=== PATIENT | male | born 1960 | race Caucasian/White ===

== ENCOUNTER 2017-08-09 07:45 | Inpatient (IN) | payer MEDICARE, MEDICAID ==
[2017-08-09] MEDS ORDERED: SODIUM CHLORIDE 0.9% 1,000 ML IV ONE (08:02)
[2017-08-09] MEDS ORDERED: LORazepam 2MG/ML-1ML VIAL IV ONE (08:15)
[2017-08-09] MEDS ORDERED: ACETAMINOPHEN 500 MG TAB PO ONE (08:30)
[2017-08-09 08:41] LABS: Basophils # (auto) 0 uL; Basophils % (auto) 0.1 % (0.0-2.0); Eosinophils # (auto) 0 uL; Eosinophils % (auto) 0.2 % (0.0-7.0); Hematocrit 45.2 % (41.0-53.0); Hemoglobin 15.1 g/dL (13.5-17.5); Lymphocytes # (auto) 0.2 uL; Lymphocytes % (auto) 2.2 % (10.0-50.0); Mean Corpuscular Hemoglobin 32.1 pg (28.0-32.0); Mean Corpuscular Hgb Conc. 33.5 g/dL (32.0-36.0); Mean Corpuscular Volume 95.8 fL (80.0-100.0); Monocytes # (auto) 0.4 uL; Monocytes % (auto) 3.8 % (0.0-12.0); Neutrophils # (auto) 9.3 uL; Neutrophils % (auto) 93.7 % (37.0-80.0); Platelet Count (auto) 147 10^3/uL (140-450); Red Blood Cells 4.72 10^6/uL (4.5-5.90); Red Cell Distribution Width 12.9 % (11.8-14.3)
[2017-08-09 09:13] LABS: Albumin 3.8 g/dL (3.4-5.0); BUN/Creatinine Ratio 16.5; Bilirubin, Total 0.4 mg/dL (0.2-1.0); Calcium 8.3 mg/dL (8.5-10.1); Magnesium 2.4 mg/dL (1.6-2.6); Potassium 4.4 mmol/L (3.5-5.1); Total Protein 7.7 g/dL (6.4-8.2)
[2017-08-09] MEDS ORDERED: cefTRIAXone 1GM/10ml IVPUSH 10 ML IV ONE (12:15)
[2017-08-09] MEDS ORDERED: SODIUM CHLORIDE 0.9% 1,000 ML IV SCH (12:22)
[2017-08-09] MEDS ORDERED: HYDROcodone-ACET 5/325MG TAB PO PRN (12:30)
[2017-08-09] MEDS ORDERED: LORazepam 2MG/ML-1ML VIAL IV PRN (12:30)
[2017-08-09] MEDS ORDERED: OSELTAMIVIR 75 MG CAP PO ONE (12:30)
[2017-08-09] MEDS ORDERED: PROMETHAZINE HCL 25 MG/ML 1ML IV PRN (12:30)
[2017-08-09] MEDS ORDERED: LEVETIRACETAM 500 MG TAB PO ONE (12:30)
[2017-08-09] MEDS ORDERED: LORazepam 0.5 MG TAB PO PRN (12:30)
[2017-08-09] MEDS ORDERED: MORPHINE SULFATE 4 MG/ML SYR/VIAL IV PRN ×2 (12:30)
[2017-08-09] MEDS ORDERED: TEMAZEPAM 15 MG CAP PO PRN (12:30)
[2017-08-09] MEDS ORDERED: ALBUTEROL SULF 2.5 MG/0.5ML(0.5%) NEB SOLN NEB PRN (12:30)
[2017-08-09] MEDS ORDERED: LACTULOSE 20Gm/30ML SOLN PO PRN (12:30)
[2017-08-09] MEDS ORDERED: DEXTROSE (50%) 50ML SYRG IV PRN (12:30)
[2017-08-09] MEDS ORDERED: ACETAMINOPHEN 500 MG TAB PO PRN (12:30)
[2017-08-09] MEDS ORDERED: NITROGLYCERIN 0.4 MG SL TAB SL PRN (12:30)
[2017-08-09] MEDS: ENOXAPARIN SOD 40 MG/0.4 ML SYRINGE SC SCH (13:00)
[2017-08-09 13:06] LABS: INR 0.98 (0.9-1.15); Partial Thromboplastin Time 27.8 sec (22.64-33.71); Prothrombin Time 10.7 sec (9.37-12.3)
[2017-08-09] MEDS: PHENYTOIN SODIUM 100 MG CAP PO SCH ×2 (13:51→22:03)
[2017-08-09] MEDS: PHENobarbital 32.4 MG TAB PO SCH ×2 (13:51→22:03)
[2017-08-09] MEDS: AZITHROMYCIN 500MG/ 250ML 250 ML IV SCH (13:51)
[2017-08-09 17:00] VITALS: BP 141/71
[2017-08-09] MEDS: InsuLIN REG 1unit/0.01ml Soln (100units/ml) SC SCH ×2 (17:00→22:00)
[2017-08-09] MEDS ORDERED: THIO50TA PO (17:06)
[2017-08-09] MEDS ORDERED: PHE100C PO (17:06)
[2017-08-09] MEDS ORDERED: FESO4TAB PO (17:06)
[2017-08-09] MEDS ORDERED: PHEN32.49 PO (17:06)
[2017-08-09] MEDS ORDERED: LITH300C3 PO (17:06)
[2017-08-09] MEDS: ACCU-CHEK COMFORT CURVE STRIP VI SCH ×2 (17:13→22:03)
[2017-08-09 17:31] VITALS: BP 141/71
[2017-08-09 20:00] VITALS: BP 140/77
[2017-08-09 21:34] VITALS: BP 140/97
[2017-08-09] MEDS ORDERED: LEVETIRACETAM 500 MG TAB PO SCH (22:00)
[2017-08-09] MEDS ORDERED: OSELTAMIVIR 75 MG CAP PO SCH (22:00)
[2017-08-10 05:24] VITALS: BP 117/70
[2017-08-10] MEDS: PHENYTOIN SODIUM 100 MG CAP PO SCH ×2 (05:58→15:00)
[2017-08-10] MEDS: PHENobarbital 32.4 MG TAB PO SCH ×2 (05:58→15:00)
[2017-08-10] MEDS: ACCU-CHEK COMFORT CURVE STRIP VI SCH ×2 (06:17→11:30)
[2017-08-10] MEDS: InsuLIN REG 1unit/0.01ml Soln (100units/ml) SC SCH ×2 (06:17→11:30)
[2017-08-10 07:54] LABS: Cholesterol 76 mg/dL (< 200); HDL Cholesterol 45 mg/dL (40-59); LDL Cholesterol 26 mg/dL (< 100); Triglycerides 120 mg/dL (< 150)
[2017-08-10 09:00] VITALS: BP 136/79
[2017-08-10] MEDS ORDERED: cefTRIAXone 1GM/10ml IVPUSH 10 ML IV SCH (09:00)
[2017-08-10] MEDS: ENOXAPARIN SOD 40 MG/0.4 ML SYRINGE SC SCH (09:34)
[2017-08-10] MEDS: AZITHROMYCIN 500MG/ 250ML 250 ML IV SCH (09:35)
[2017-08-10 11:32] LABS: Urine Bacteria NONE SEEN /hpf (None Seen); Urine Blood Negative /uL (Negative); Urine Specific Gravity 1.007 (1.001-1.035); Urine WBC 1 /hpf (0 - 3)
[2017-08-10 11:44] LABS: Alcohol, Urine < 3.0 mg/dL (0-5); Amphetamine Screen, Urine NEGATIVE (NEGATIVE); Barbiturate Scree,Urine POSITIVE (NEGATIVE); Benzodiazephine Screen, Urine NEGATIVE (NEGATIVE); Cannabinoid Screen, Urine NEGATIVE (NEGATIVE); Cocaine Screen, Urine NEGATIVE (NEGATIVE); Opiate Scree,Urine NEGATIVE (NEGATIVE); Phencyclidine Screen, Urine NEGATIVE (NEGATIVE)
[2017-08-10 13:00] VITALS: BP_SYST 127; BP_SYST 137; BP_DIAS 58; BP_DIAS 78
[2017-08-10 16:33] VITALS: BP 141/85
== END 2017-08-10 16:42 | disposition home or self-care (01) | DRG 872 ==
LOC: ER 07:45 → TELE 07:46 → TELE-WESTW 15:48
PROVIDERS: ADMIT Internal Medicine; ATTEND Internal Medicine
DX: A41.9 Sepsis, unspecified organism (principal); J81.1 Chronic pulmonary edema; J01.20 Acute ethmoidal sinusitis, unspecified; E11.9 Type 2 diabetes mellitus without complications; F31.9 Bipolar disorder, unspecified; F79 Unspecified intellectual disabilities; G40.909 Epilepsy, unspecified, not intractable, without status epilepticus; J20.9 Acute bronchitis, unspecified; J32.2 Chronic ethmoidal sinusitis; Z80.9 Family history of malignant neoplasm, unspecified; R55 Syncope and collapse; R62.50 Unspecified lack of expected normal physiological development in childhood
CPT/HCPCS: 36415; 70450; 71045; 71046; 80053; 80061; 80184; 80185; 80307; 81001; 82962; 83036; 83735; 83880; 84443; 85025; 85610; 85652; 85730; 87040; 87086; 87804; 93005; 94761; 95819; 96361; 96365; 96372; 96375

== ENCOUNTER 2021-02-27 21:27 | Emergency (ER) | payer MEDICARE, MEDICAID ==
[~2021-02-27] VITALS: Ht 170.2 cm; Wt 81.6 kg
[~2021-02-27 21:27] MED LIST: FESO4TAB PO; LITH300C3 PO; PHE100C PO; PHEN32.44 PO; THIO50TA PO
[2021-02-27 23:53] LABS: Basophils # (auto) 0 10 ^3/uL (0-0.2); Basophils % (auto) 0.2 % (0.0-2.0); Eosinophils # (auto) 0 10 ^3/uL (0-0.8); Eosinophils % (auto) 0.5 % (0.0-7.0); Hematocrit 36.5 % (41.0-53.0); Hemoglobin 12.5 g/dL (13.5-17.5); Lymphocytes # (auto) 1.2 10 ^3/uL (0.4-5.4); Lymphocytes % (auto) 13.7 % (10.0-50.0); Mean Corpuscular Hemoglobin 32.5 pg (28.0-32.0); Mean Corpuscular Hgb Conc. 34.2 g/dL (32.0-36.0); Mean Corpuscular Volume 95.1 fL (80.0-100.0); Monocytes % (auto) 12.2 % (0.0-12.0); Neutrophils # (auto) 6.3 10 ^3/uL (1.6-8.6); Neutrophils % (auto) 73.4 % (37.0-80.0); Nucleated Red Blood Cells % 0.1 %; Red Blood Cells 3.84 10^6/uL (4.5-5.90); Red Cell Distribution Width 12.9 % (11.8-14.3); White Blood Cell 8.6 10^3/uL (4.4-10.8)
[2021-02-28 00:13] LABS: Potassium 3.9 mmol/L (3.5-5.1)
[2021-02-28 00:16] LABS: BUN/Creatinine Ratio 11.9
[2021-02-28 03:40] VITALS: BP 119/67
== END 2021-02-28 20:55 | disposition home or self-care (01) ==
LOC: EDBD 21:27 → ER 21:32
DX: R55 Syncope and collapse (principal); E11.9 Type 2 diabetes mellitus without complications; Z79.899 Other long term (current) drug therapy; Z88.0 Allergy status to penicillin; Z88.6 Allergy status to analgesic agent
CPT/HCPCS: 36415; 71045; 80048; 85025; 93005